=== PATIENT | female | born 1965 | race Caucasian/White ===

== ENCOUNTER → 2016-04-24 | Outpatient (CLI) | payer OTHER | LOC: FIMAGING 14:47 | DX: Z12.31 Encounter for screening mammogram for malignant neoplasm of breast (principal); Z80.3 Family history of malignant neoplasm of breast | CPT/HCPCS: G0202 ==

== ENCOUNTER → 2016-04-24 | Outpatient (CLI) | payer OTHER | LOC: FIMAGING 15:14 | PROVIDERS: ATTEND Family Medicine | DX: R06.02 Shortness of breath (principal) ==

== ENCOUNTER → 2016-05-06 | Outpatient (CLI) | payer OTHER | LOC: FIMAGING 13:32 | PROVIDERS: ATTEND Family Medicine | DX: Z12.39 Encounter for other screening for malignant neoplasm of breast (principal); R92.2 Inconclusive mammogram | CPT/HCPCS: G0206 ==

== ENCOUNTER → 2016-10-20 | Outpatient (CLI) | payer OTHER | LOC: FIMAGING 13:25 | PROVIDERS: ATTEND Family Medicine | DX: R92.0 Mammographic microcalcification found on diagnostic imaging of breast (principal) | CPT/HCPCS: G0206 ==

== ENCOUNTER → 2017-02-16 | Outpatient (CLI) | payer OTHER | LOC: BMCIMAGING 10:07 | PROVIDERS: ATTEND Family Medicine | DX: N60.01 Solitary cyst of right breast (principal) | CPT/HCPCS: G0204 ==

== ENCOUNTER → 2017-08-05 | Outpatient (CLI) | payer OTHER | LOC: FIMAGING 13:34 | PROVIDERS: ATTEND Internal Medicine | DX: N60.02 Solitary cyst of left breast (principal) ==

== ENCOUNTER → 2017-11-19 | Outpatient (CLI) | payer OTHER | LOC: FIMAGING 15:36 | PROVIDERS: ATTEND Internal Medicine | DX: J98.09 Other diseases of bronchus, not elsewhere classified (principal) ==

== ENCOUNTER → 2018-04-07 | Outpatient (CLI) | payer OTHER | LOC: FIMAGING 14:19 | PROVIDERS: ATTEND Internal Medicine | DX: Z12.31 Encounter for screening mammogram for malignant neoplasm of breast (principal); Z80.3 Family history of malignant neoplasm of breast ==